=== PATIENT | female | born 1955 | race Asian ===

== ENCOUNTER 2021-08-25 09:26 | Outpatient (CLI) | payer OTHER | END 2021-08-25 19:35 | disposition home or self-care (01) | LOC: US 09:26 | PROVIDERS: ATTEND Family Medicine | DX: R42 Dizziness and giddiness (principal); I10 Essential (primary) hypertension; E11.9 Type 2 diabetes mellitus without complications; E78.00 Pure hypercholesterolemia, unspecified ==